=== PATIENT | male | born 1955 | race Caucasian/White ===

== ENCOUNTER 2017-06-15 20:01 | Inpatient (IN) | payer MEDICARE, MEDICAID ==
[~2017-06-15] VITALS: Ht 177.8 cm; Wt 86.0 kg
[2017-06-15 20:26] LABS: AMPHET/METH SCREEN,URINE POSITIVE (NEGATIVE); BARBITURATE SCREEN, URINE NEGATIVE (NEGATIVE); BENZODIAZEPINES SCREEN,URINE NEGATIVE (NEGATIVE); CANNABINOID SCREEN,URINE NEGATIVE (NEGATIVE); COCAINE SCREEN,URINE NEGATIVE (NEGATIVE); METHADONE SCREEN, URINE NEGATIVE (NEGATIVE); OPIATE SCREEN,URINE NEGATIVE (NEGATIVE)
[2017-06-15 20:27] LABS: PHENCYCLIDINE SCREEN,URINE NEGATIVE (NEGATIVE)
[2017-06-15 20:30] LABS: BASOPHILS # (AUTO) 0.03 K/uL (0.00-0.20); BASOPHILS % (AUTO) 0.4 % (0.0-2.0); EOSINOPHILS # (AUTO) 0.15 K/uL (0.00-0.70); EOSINOPHILS % (AUTO) 2.05 % (1.0-6.0); HEMATOCRIT 34.8 % (41-53); HEMOGLOBIN 11.1 g/dL (13.5-17.5); LYMPHOCYTES # (AUTO) 1.7 K/uL (1.0-4.8); LYMPHOCYTES % (AUTO) 23.6 % (22.0-44.0); MEAN CORPUSCULAR HEMOGLOBIN 25.2 pg (26.0-34.0); MEAN CORPUSCULAR HGB CONC 31.8 G/dL (31.0-37.0); MEAN CORPUSCULAR VOLUME 79 fL (80-100); MONOCYTES % (AUTO) 12.9 % (2.0-9.0); NEUTROPHILS # (AUTO) 4.5 K/uL (1.8-7.7); PLATELET COUNT (AUTO) 597 K/uL (150-450); RED BLOOD CELL COUNT(AUTO) 4.39 MIL/uL (4.50-5.90); RED CELL DISTRIBUTION WIDTH 18.5 % (11.5-14.5)
[2017-06-15 20:41] LABS: ANION GAP 9 mmol/L (8-16); CALCIUM, TOTAL 8.4 mg/dL (8.8-10.5); CARBON DIOXIDE 27 mmol/L (22-29); CHLORIDE 104 mmol/L (98-107); CREATININE 1.21 mg/dL (0.60-1.30); GLOMERULAR FILTR. RATE CALC > 60 mL/min (>60); GLUCOSE,RANDOM 73 mg/dL (70-110); POTASSIUM 3.6 mmol/L (3.5-5.1); SODIUM SERUM 140 mmol/L (136-145); UREA NITROGEN, BLOOD 17 mg/dL (7-18)
[2017-06-15 20:46] LABS: ALANINE AMINOTRANSFERASE 19 U/L (12-78); ALBUMIN 3.3 g/dL (3.4-5.0); ALKALINE PHOSPHATASE 81 U/L (46-116); ASPARTATE AMINOTRANSFERASE 18 U/L (15-37); BILIRUBIN,TOTAL 0.2 mg/dL (0.1-1.0); TOTAL PROTEIN, SERUM 8.9 g/dL (6.4-8.2)
[2017-06-15 20:53] LABS: SALICYLATE < 2.8 mg/dL (2.8-20.0)
[2017-06-15 21:06] LABS: ACETAMINOPHEN < 2 mcg/mL (10-30)
[2017-06-15 21:28] LABS: PLATELET MORPHOLOGY COMMENT GIANT PLTS PRESENT
[2017-06-16] MEDS ORDERED: SULFAMETHOX/TRIMETH DS 800-160 MG/TABLET PO ONE
[2017-06-16] MEDS ORDERED: CEPHALEXIN MONOHYDRATE 500 MG CAPSULE PO ONE
[2017-06-16 17:10] LABS: C.DIFF TOXINS A&B, Stool Negative (Negative)
[2017-06-16 17:11] LABS: C.DIFF GDH ANTIGEN, Stool Positive (Negative)
[2017-06-16] MEDS ORDERED: HALOPERIDOL 5 MG TABLET PO PRN (22:30)
[2017-06-16] MEDS ORDERED: ZOLPIDEM TARTRATE 10 MG TABLET PO PRN (22:30)
[2017-06-16] MEDS ORDERED: LORazepam 2 MG TABLET PO PRN (22:30)
[2017-06-17] MEDS ORDERED: DIPHENOXYLATE/ATROP 2.5-0.025 MG TABLET PO ONE (14:15)
[2017-06-17 19:28] VITALS: BP 135/82
[2017-06-17] MEDS ORDERED: LOPERAMIDE HCL 2 MG CAPSULE PO PRN (20:45)
[2017-06-18 08:15] VITALS: BP 134/85
[2017-06-18] MEDS: VANCOMYCIN HCL 125 MG/2.5 ML SOLUTION ORAL.SYG PO SCH ×3 (13:38→21:04)
[2017-06-18] MEDS: OLANZapine 5 MG TABLET PO SCH (17:50)
[2017-06-18 19:20] VITALS: BP 130/80
[2017-06-19 08:55] VITALS: BP 133/75
[2017-06-19] MEDS: VANCOMYCIN HCL 125 MG/2.5 ML SOLUTION ORAL.SYG PO SCH ×4 (09:41→20:36)
[2017-06-19] MEDS: OLANZapine 5 MG TABLET PO SCH ×2 (09:41→17:38)
[2017-06-19 19:52] VITALS: BP 129/68
[2017-06-20 08:30] VITALS: BP 155/83
[2017-06-20] MEDS: VANCOMYCIN HCL 125 MG/2.5 ML SOLUTION ORAL.SYG PO SCH ×4 (10:49→20:37)
[2017-06-20] MEDS: OLANZapine 5 MG TABLET PO SCH ×2 (10:49→16:19)
[2017-06-20] MEDS: SULFAMETHOX/TRIMETH DS 800-160 MG/TABLET PO SCH ×2 (10:49→16:19)
[2017-06-20 17:01] VITALS: BP 154/98
[2017-06-21 09:09] VITALS: BP 130/88
[2017-06-21] MEDS: SULFAMETHOX/TRIMETH DS 800-160 MG/TABLET PO SCH ×2 (11:08→16:20)
[2017-06-21] MEDS: VANCOMYCIN HCL 125 MG/2.5 ML SOLUTION ORAL.SYG PO SCH ×3 (11:08→16:20)
[2017-06-21] MEDS: OLANZapine 5 MG TABLET PO SCH ×2 (11:08→16:20)
[2017-06-21] MEDS ORDERED: OLAN5TAB2 PO (14:54)
[2017-06-21] MEDS ORDERED: SULF1TAB42 PO (14:55)
[2017-06-21] MEDS ORDERED: VANC125C5 PO (14:58)
== END 2017-06-21 16:45 | disposition home or self-care (01) | DRG 885 ==
LOC: EMS 20:02 → 3EI 06-17 17:07
DX: F31.4 Bipolar disorder, current episode depressed, severe, without psychotic features (principal); A04.72 Enterocolitis due to Clostridium difficile, not specified as recurrent; R45.851 Suicidal ideations; L03.115 Cellulitis of right lower limb; F15.10 Other stimulant abuse, uncomplicated; D50.9 Iron deficiency anemia, unspecified; L03.116 Cellulitis of left lower limb; D64.9 Anemia, unspecified; G47.00 Insomnia, unspecified; I10 Essential (primary) hypertension; J44.9 Chronic obstructive pulmonary disease, unspecified; Z87.891 Personal history of nicotine dependence
CPT/HCPCS: 87070; 87147; 87205; 87324; 87449; 99285; G0480; G0481